=== PATIENT | female | born 1985 | race Caucasian/White ===

== ENCOUNTER 2019-06-21 20:31 | Inpatient (IN) | payer OTHER ==
[~2019-06-21] VITALS: Ht 165.1 cm; Wt 59.0 kg
[~2019-06-21 20:31] MED LIST: DOCU-144 PO; FER325 PO; TRAM50TA PO
[2019-06-21] MEDS ORDERED: SOD CHLORIDE 0.9% 1,000 ML IV ONE (23:00)
[2019-06-22] MEDS ORDERED: ACETAMINOPHEN 325 MG TAB PO PRN (02:00)
[2019-06-22] MEDS ORDERED: ONDANSETRON 4 MG INJ IV PRN (02:00)
[2019-06-22] MEDS ORDERED: NACL 0.9% 3 ML SYG IV SCH (02:00)
[2019-06-22] MEDS ORDERED: BISACODYL (EC) 5 MG TAB PO PRN (02:00)
[2019-06-22] MEDS ORDERED: DOCUSATE SODIUM 100 MG CAP PO PRN (02:00)
[2019-06-22] MEDS ORDERED: HYDROCODONE/APAP (5/325) TAB PO PRN (02:00)
[2019-06-22 11:20] VITALS: Ht 165.1 cm; Wt 59.0 kg
[2019-06-22 11:35] VITALS: BP 107/63; PULSE 63; RESP 18
[2019-06-22 14:45] VITALS: BP 100/56; PULSE 74; RESP 17
[2019-06-22 19:48] VITALS: BP 111/59; PULSE 71; RESP 20
[2019-06-22] MEDS: DOCUSATE SODIUM 100 MG CAP PO SCH (21:00)
[2019-06-23] VITALS (22 sets, daily range): BP systolic 87–120; BP diastolic 48–66; PULSE 48–77; RESP 12–20
[2019-06-23] MEDS ORDERED: DOCUSATE SODIUM 100 MG CAP PO SCH (02:00)
[2019-06-23] MEDS: DOCUSATE SODIUM 100 MG CAP PO SCH ×2 (09:00→21:00)
[2019-06-23] MEDS ORDERED: SOD FERRIC GLUC COMPLX 125 MG in SOD CHLORIDE 0.9% 100 ML IVPB SCH (13:00)
[2019-06-23] MEDS ORDERED: CEFAZOLIN 1 GM INJ ONE (21:27)
[2019-06-23] MEDS ORDERED: PROPOFOL 20 ML ONE (21:27)
[2019-06-23] MEDS ORDERED: FENTAnyl 50 MCG/ML VIAL ONE (21:28)
[2019-06-23] MEDS ORDERED: MIDAZOLAM 1 MG/ML 2 ML INJ ONE (21:28)
[2019-06-23] MEDS ORDERED: METOCLOPRAMIDE 10 MG INJ ONE (21:47)
[2019-06-23] MEDS ORDERED: KETOROLAC 30 MG INJ ONE (21:47)
[2019-06-23] MEDS ORDERED: ONDANSETRON 4 MG INJ ONE (21:47)
[2019-06-24 00:43] VITALS: BP 111/72; PULSE 85; RESP 18
[2019-06-24 07:15] VITALS: BP 104/59; PULSE 61; RESP 15
[2019-06-24] MEDS: DOCUSATE SODIUM 100 MG CAP PO SCH (08:47)
== END 2019-06-24 11:02 | disposition home or self-care (01) | DRG 745 ==
LOC: FTE 20:31 → MS1 06-22 02:00
PROVIDERS: ADMIT Family Medicine; ATTEND Family Medicine
PROC: 30233N1 Transfusion of Nonautologous Red Blood Cells into Peripheral Vein, Percutaneous Approach (ICD-10-PCS; 2019-06-22)
PROC: 0UDB7ZX Extraction of Endometrium, Via Natural or Artificial Opening, Diagnostic (ICD-10-PCS; principal; 2019-06-23 20:30)
DX: N92.0 Excessive and frequent menstruation with regular cycle (principal); D50.0 Iron deficiency anemia secondary to blood loss (chronic)
CPT/HCPCS: 36415; 36430; 76830; 76856; 80053; 80061; 81001; 81025; 82728; 83036; 83540; 83615; 83735; 84443; 85025; 85045; 85610; 85730; 86644; 86850; 86900; 86901; 86920; 86945; 87086; 88305; J0690; J1885; J2250; J2405; J2765; J2916; J3010; J7030; P9016